=== PATIENT | female | born 1950 | race Two or more races ===

== ENCOUNTER 2021-03-16 09:38 | Outpatient (CLI) | payer OTHER | END 2021-03-16 09:58 | disposition home or self-care (01) | LOC: SONOGRAMA 09:38 | PROVIDERS: ATTEND Pathology Anatomic Pathology & Clinical Pathology | DX: D34 Benign neoplasm of thyroid gland (principal); E04.8 Other specified nontoxic goiter ==

== ENCOUNTER 2022-11-01 11:49 | Outpatient (CLI) | payer OTHER | END 2022-11-01 11:51 | disposition home or self-care (01) | LOC: SONOGRAMA 11:49 | PROVIDERS: ATTEND Pathology Anatomic Pathology & Clinical Pathology | DX: D34 Benign neoplasm of thyroid gland (principal); E04.9 Nontoxic goiter, unspecified; R59.0 Localized enlarged lymph nodes ==